=== PATIENT | male | born 1985 | race Caucasian/White ===

== ENCOUNTER 2016-10-07 19:18 | Emergency (ER) | payer MEDICAID ==
[2016-10-07] MEDS ORDERED: ORPHENADRINE 60 MG/2 ML AMP ONE (19:43)
[2016-10-07] MEDS ORDERED: DILAUDID 1 MG/ML AMP ONE (19:43)
== END 2016-10-07 20:41 | disposition home or self-care (01) ==
LOC: ER 19:18
DX: M54.31 Sciatica, right side (principal)
CPT/HCPCS: 96372